=== PATIENT | female | born 1995 | race Caucasian/White ===

== ENCOUNTER 2017-10-14 16:30 | Observation (INO) ==
--- NOTE | 2017-10-14 17:01 | Emergency Department Report ---
URI/Sore Throat HPI - General Chief Complaint: Upper Respiratory Infection Stated Complaint: Flu symptoms Time Seen by Provider: 10/14/17 17:00 Source: patient - History of Present Illness HPI Narrative: 22-year-old female presents to ER with nonproductive cough, generalized body aches, headache, chills and nausea. Says she started feeling bad yesterday with a cough. Today she vomited twice today with decreased appetite. Denies fever, rhinorrhea, SOA (now), CP, abdominal pain, dysuria, neck stiffness /pain. Patient was weak and hyperventilating per nurse when she arrived. No known sick contacts. Patient did have influenza vaccine this year. MD Complaint: cough, sore throat, rhinorrhea, nasal congestion Severity scale (1-10): 7 (genralized body aches) Relieving factors: NSAID, OTC cold medicine - Related Data Home Medications Medication Instructions Recorded Confirmed Dextromethorphan Oral Liq [Delsym] 30 mg PO Q4H PRN 10/14/17 10/14/17 Ibuprofen 600 mg PO Q6H PRN 10/14/17 10/14/17 Allergies Allergy/AdvReac Type Severity Reaction Status Date / Time No Known Allergies Allergy Verified 10/14/17 23:55 Review of Systems All systems: reviewed and negative except as stated Constitutional: Reports: as per HPI, chills Respiratory: Reports: as per HPI, cough Gastrointestinal: Reports: as per HPI, nausea, vomiting Musculoskeletal: Reports: as per HPI, other (genralized body aches) Neurological: Reports: as per HPI, headache PFSH None Surgical History: None Family History: Noncontributory Physical Exam - Limitations Limitations: no limitations - General General appearance: alert - Normal Exams: Head:: Normocephalic without trauma Eyes:: Pupils are PERRLA w/ EOMI, No scleral icterus, irritation ENMT:: No facial trauma, nasal exudates, pharyngeal erythema, or exudates are noted Abdomen:: Bowel sounds positive, soft, non-tender, non-distended, no hepatosplenomegaly Lymphatic:: No lymphadenopathy Musculoskeletal:: good range of motion, all extremities Neurological:: Patient is alert, and oriented, cranial nerves, motor/sensory/ cerebellar, exams w/o gross deficits, to observation Psychiatric:: Patient exhibits, appropriate attention - ENT ENT exam: Present: mucous membranes moist, TM's normal bilaterally (with good light reflex) - Neck Neck exam: Present: trachea midline. Absent: other (nuchal rigidity) - Chest Chest inspection: Present: symmetric chest wall rise - Expanded Respiratory Exam Location: Left: decreased breath sounds, Right: decreased breath sounds, Lower: decreased breath sounds - Cardiovascular Cardiovascular exam: Present: normal rhythm (96 bpm) - Skin Skin exam: Present: warm, dry Course - Consultations Consultation #1: Discussed patient's HPI, past medical history, labs, vital signs, chest x-ray, exam findings and treatment in the ER with Dr. Reina. Dr. Reina will admit observation status. Vital Signs Temperature 99.5 F 10/14/17 16:46 Pulse Rate 99 10/14/17 16:46 Respiratory Rate 28 H 10/14/17 16:46 Blood Pressure 108/64 10/14/17 16:46 Pulse Oximetry 100 10/14/17 16:46 Temperature 98.4 F 10/15/17 10:13 Pulse Rate 90 10/15/17 08:29 Respiratory Rate 14 10/15/17 08:29 Blood Pressure 124/66 10/15/17 08:29 Pulse Oximetry 95 10/15/17 08:29 Upper Respiratory Infection - [facility] Narrative Medical decision making narrative: Patient has influenza positive with a white count of 2.6 and absolute neutrophils of 2. Lactate 3.3 184, rocephin ordered at this time. Still waiting on CXR. 1844 patient states she is feeling much better after NS, Toradol and Zofran. I discussed labs with patient and answered questions. Patient agrees with admission. - Differential Diagnosis Differential diagnosis: Likely: upper respiratory infection, viral infection, bronchitis, influenza - Lab Data Attestation: I reviewed the patient's lab results. Result diagrams: 10/15/17 04:36 10/15/17 04:36 Lab Results 10/14/17 10/14/17 10/14/17 Range/Units 17:13 17:13 17:22 WBC 2.6 L (4.5-11.0) T/MM3 RBC 4.42 (4.00-5.20) M/MM3 Hgb 12.0 (12-16) GM/DL Hct 36.8 (36-46) % MCV 83.3 (80-100) UM3 MCH 27.1 (26-34) UUG MCHC 32.6 (31-37) GM/DL RDW Std Deviation 45.3 (36.9-50.2) FL Plt Count 187 (130-400) T/MM3 MPV 9.8 (9.4-12.4) UM3 Immature Gran % (Auto) 0.0 (0.0-0.5) % Neut % (Auto) 75.9 H (33-66) % Lymph % (Auto) 12.8 L (23-45) % [place] % (Auto) 10.1 H (0-9.0) % Eos % (Auto) 0.8 (0-4) % Baso % (Auto) 0.4 (0-2) % Neut # (Auto) 2.0 (1.8-7.7) T/MM3 Lymph # (Auto) 0.3 L (1-4.8) T/MM3 [place] # (Auto) 0.3 (0-0.8) T/MM3 Eos # (Auto) 0.0 (0-0.5) T/MM3 Baso # (Auto) 0.0 (0-0.2) T/MM3 Abs Immat Gran (auto) 0.00 (0.00-0.03) T/MM3 Turbidity < 20 (0-20) Sodium 140 (134-144) MEQ/L Potassium 3.8 (3.6-5) MEQ/L Chloride 107 (98-107) MEQ/L Carbon Dioxide 23 (22-30) MEQ/L Anion Gap 10 (5-15) MEQ/L BUN 8.0 (7-17) MG/DL Creatinine 0.7 (0.7-1.2) MG/DL GFR Calculation 107 BUN/Creatinine Ratio 11 (6-26) RATIO Glucose 105 (65-110) MG/DL Calculated Osmolality 267 (261-280) MOSM/KG Calcium 9.3 (8.4-10.2) MG/DL Icterus Index < 2 (0-7) Plasma Lactate (0.6-2.2) MMOL/L Beta HCG, Quant mIU/mL Specimen Hemolysis < 15 (0-25) Monoscreen (Negative) Influenza Type A (PCR) Positive A* (Negative) Influenza Type B (PCR) Negative (Negative) 10/14/17 10/14/17 10/14/17 Range/Units 18:24 18:24 18:24 WBC (4.5-11.0) T/MM3 RBC (4.00-5.20) M/MM3 Hgb (12-16) GM/DL Hct (36-46) % MCV (80-100) UM3 MCH (26-34) UUG MCHC (31-37) GM/DL RDW Std Deviation (36.9-50.2) FL Plt Count (130-400) T/MM3 MPV (9.4-12.4) UM3 Immature Gran % (Auto) (0.0-0.5) % Neut % (Auto) (33-66) % Lymph % (Auto) (23-45) % [place] % (Auto) (0-9.0) % Eos % (Auto) (0-4) % Baso % (Auto) (0-2) % Neut # (Auto) (1.8-7.7) T/MM3 Lymph # (Auto) (1-4.8) T/MM3 [place] # (Auto) (0-0.8) T/MM3 Eos # (Auto) (0-0.5) T/MM3 Baso # (Auto) (0-0.2) T/MM3 Abs Immat Gran (auto) (0.00-0.03) T/MM3 Turbidity (0-20) Sodium (134-144) MEQ/L Potassium (3.6-5) MEQ/L Chloride (98-107) MEQ/L Carbon Dioxide (22-30) MEQ/L Anion Gap (5-15) MEQ/L BUN (7-17) MG/DL Creatinine (0.7-1.2) MG/DL GFR Calculation BUN/Creatinine Ratio (6-26) RATIO Glucose (65-110) MG/DL Calculated Osmolality (261-280) MOSM/KG Calcium (8.4-10.2) MG/DL Icterus Index (0-7) Plasma Lactate 3.3 H (0.6-2.2) MMOL/L Beta HCG, Quant < 2.39 mIU/mL Specimen Hemolysis (0-25) Monoscreen Negative (Negative) Influenza Type A (PCR) (Negative) Influenza Type B (PCR) (Negative) - Radiology Data Attestation: I reviewed the patient's radiology results. No acute cardiopulmonary findings Disposition Clinical Impression: Influenza A, Dehydration, Severe sepsis Disposition: 02 To [facility] [place] Acute Care Condition: Stable for Transport - Seen By: midlevel
[2017-10-14] MEDS ORDERED: NS 1,000 ML IV ONE ×2 (17:02→18:25)
[2017-10-14] MEDS ORDERED: ONDANSETRON 4 MG/2 ML INJECTION IVP ONE (17:04)
[2017-10-14] MEDS ORDERED: ALBUTEROL 2.5mg/3ml (0.083%) NEB AEROSOL ONE (17:47)
[2017-10-14] MEDS ORDERED: KETOROLAC 30 MG/ML INJECTION IVP ONE (18:26)
[2017-10-14] MEDS ORDERED: CEFTRIAXONE (ER USE ONLY) 1 GM in NS 100 ML IV ONE ×2 (18:40→21:09)
[2017-10-14] MEDS ORDERED: HYDROCODONE/APAP 5mg/325mg TABLET PO PRN (21:09)
[2017-10-14] MEDS ORDERED: ONDANSETRON 4 MG/2 ML INJECTION IVP PRN (21:09)
[2017-10-14] MEDS ORDERED: MORPHINE SULFATE 4mg INJECTION IVP PRN (21:09)
[2017-10-14] MEDS ORDERED: IBUPROFEN 600 MG TABLET PO PRN (21:09)
[2017-10-14] MEDS ORDERED: AZITHROMYCIN IV 500 MG in NS 250ml 250 ML IV SCH (21:09)
[2017-10-14] MEDS ORDERED: DOCUSATE SODIUM 100 MG CAPSULE PO PRN (21:09)
[2017-10-14] MEDS: NS 1,000 ML IV SCH (21:19)
[2017-10-14] MEDS: ACETAMINOPHEN 325 MG TABLET PO PRN (21:55)
[2017-10-15 01:02] VITALS: BMI 23.8
--- NOTE | 2017-10-15 06:08 | History & Physical Report ---
History of Present Illness Date: 10/15/17 Chief complaint: cough HPI: 22 y/o female with onset of cough that began yesterday. Patient with weakness, myalgia, In the ED diagnosed with influenza A. She does have elevated LA and basically did not feel that she was able to go home. Patient to be admitted for fluid and cycling lactic acid with tamiflu Review of Systems Review of systems: patient with headache, congestion, sore throat, cough that is non productive, mild nausea without emesis, no diarhea, no skin rash, no focal motor weakness, generally weak. 10 point ROS otherwise neg except for outlined above. Past Medical History none Surgical History: None Family History Updates: parents are healthy - Social History Smoking status: Never smoker Substance use type: does not use Alcohol intake frequency: does not drink Current occupational status: student Medications Home Medications Medication Instructions Recorded Confirmed Type Dextromethorphan Oral Liq [Delsym] 30 mg PO Q4H PRN 10/14/17 10/14/17 History Ibuprofen 600 mg PO Q6H PRN 10/14/17 10/14/17 History Allergies Allergy/AdvReac Type Severity Reaction Status Date / Time No Known Allergies Allergy Verified 10/14/17 23:55 Exam Vital Signs: Temperature 99.3 F 10/15/17 04:38 Pulse Rate 119 H 10/14/17 21:06 Respiratory Rate 25 H 10/14/17 21:06 Blood Pressure 108/61 10/14/17 21:06 Pulse Oximetry 98 10/14/17 21:06 Telemetry Rhythm: Sinus Rhythm Height/Weight/BMI: Height 1.7 m Weight 69 kg Body Mass Index 23.8 - Constitutional Present: mild distress, well nourished, well developed, thin, cooperative - Routine HEENT Exam Head: Present: normocephalic, atraumatic Eye: Present: EOMI ENT: Present: mucous membranes dry - Routine Neck Exam Present: supple, full ROM - Routine Respiratory Exam Present: CTA bilaterally - Routine Cardiovascular Exam Present: RRR, no murmur - Routine Abdominal Exam Present: soft, normoactive bowel sounds, non distended, non tender - Routine Extremities Exam Present: no edema, non tender, full ROM - Routine Back/Spine/Pelvis Exam Back/Spine: Present: full ROM - Routine Skin Exam Present: intact - Routine Neurological Exam Present: alert, oriented X3. Absent: motor deficit - Routine Psychiatric Exam Present: normal affect, normal thought process Results - Labs CBC & Chem 7: 10/15/17 04:36 10/15/17 04:36 Labs: labs reviewed and will be discussed below - Imaging and Cardiology Chest x-ray Additional comments: no acute process Assessment and Plan (1) Influenza A Current visit: Yes Status: Acute (2) Dehydration Current visit: Yes Status: Acute (3) Severe sepsis Current visit: Yes Status: Acute Assessment and Plan: 1. influenza A bronchitis acute POA: tamiflu. with elevated LA, cover with roceph and zithromax intiially. fluids, antipyretics. reasseess with labs in the am 2. severe sepsis acute POA: fluids resucitation and cycle LA, should respond easily 3. dehydration acute POA: clinically, fluids and reassess in am DVT Prophylaxis: SCD's Resuscitation Status: Full Code - Time spent with patient Time with patient PN: 30 minutes Coordination of Care: >50% of visit spent providing counseling/coordination of care - Physician Narrative Physician: Amy Trevino MD Narrative: Date: 10/15/17 Time: 1100 Ms. Bean was interviewed and examined by me this am. She reports starting to feel ill on Monday. She states that started with aching all over as well as a headache. She has not taken much fluid or food in sense. She developed increasing weakness as well as fevers and chills. She's had a sore throat and a nonproductive cough. She's had mild nausea but denies vomiting. She denies any diarrhea. She presented to the emergency room late last evening. She was positive for influenza A. her lactate was elevated at 3.3 and has come down to 2.0 today. She was given IV fluids and started on Tamiflu. She was given Rocephin and azithromycin. Her peak temp was 101.2 at 2037 last night. She was still 100.4 this am but currently is afebrile. She has been up in the room. She is eating and drinking a little. She denies nausea this am. She reports bowels have been moving. PMH: Unremarkable, She takes no medications. She denies medical or surgical history PSH: None Social hx: Never smoker Rare ETOH Student Family Hx: Mom and dad are both alive and well. She knows of no major medical issues that run in the family ROS: 12 pt ros is negative except as noted above. PE: Gen: alert and oriented. NAD Skin: warm and dry HEENT: NC/AT PERRL, EOMI, Sclera, lids and conjunctiva wnl. MMM. OP clear. Neck: No JVD, Carotids 2+ without bruits Lungs: clear. No rales, rhonchi or wheezes CV: regular. No murmur, rub or gallop Abd: soft. +BS. NT/ND MS: No edema. Good strength and ROM Neuro: No focal deficits Assessment and plan: 1. Influenza A with fevers, nausea, weakness -Tamiflu 2. Dehydration -IVF, encourage PO intake She can probably go home later today if she remains afebrile, is ambulating and eating and drinking okay. Will reassess this afternoon. 1345 Pt seen in the afternoon. She is eating and drinking. She has not been up and walking yet. She has been afebrile. She would like to go home. I told her to get up and around and if she still feels like going she can. She is encouraged to drink plenty of water. Hospital Course Summary Disclaimer: The visit summary below is not to be considered part of the above Progress Note.
[2017-10-15] MEDS: NS 1,000 ML IV SCH ×3 (06:36→08:57)
--- NOTE | 2017-10-15 08:49 | XRay Report ---
INDICATION: cough, sepsis PROCEDURE: CHEST 2-VIEWS UPRIGHT (PA & LAT) Encounter: Initial COMPARISON: None FINDINGS: The lungs are clear without evidence of focal abnormal airspace opacity. There is no pleural effusion or pneumothorax. The heart size, mediastinal contours and pulmonary vascularity are within normal limits. There is no significant skeletal abnormality. IMPRESSION: No acute cardiopulmonary disease. .
[2017-10-15] MEDS: ACETAMINOPHEN 325 MG TABLET PO PRN (08:52)
[2017-10-15 12:08] VITALS: BP 103/65; PULSE 70; RESP 16; TEMP 98.1; O2SAT 97
--- NOTE | 2017-10-15 14:19 | Discharge Summary ---
Discharge Information Date of admission: 10/14/17 20:25 Anticipated date of discharge: 10/15/17 Attending Physician: Leonel Guthrie IV, MD Primary care physician: OTHER - Discharge Diagnosis (1) Influenza A Status: Acute (2) Dehydration Status: Acute (3) Severe sepsis Status: Acute Influenza A Dehydration - Laboratory Labs: 10/15/17 04:36 10/15/17 04:36 - Radiology Radiology: CXR unremarkable History of Present Illness HPI: 22 y/o female with onset of cough that began yesterday. Patient with weakness, myalgia, In the ED diagnosed with influenza A. She does have elevated LA and basically did not feel that she was able to go home. Patient to be admitted for fluid and cycling lactic acid with tamiflu She reports starting to feel ill on Monday. She states that started with aching all over as well as a headache. She has not taken much fluid or food intake. She developed increasing weakness as well as fevers and chills. She's had a sore throat and a nonproductive cough. She's had mild nausea but denies vomiting. She denies any diarrhea. She presented to the emergency room late last evening. She was positive for influenza A. her lactate was elevated at 3.3 and has come down to 2.0 today. She was given IV fluids and started on Tamiflu. She was given Rocephin and azithromycin. Her peak temp was 101.2 at 2037 last night. She was still 100.4 this am but currently is afebrile. She has been up in the room. She is eating and drinking a little. She denies nausea this am. She reports bowels have been moving Objective Vital signs: Temperature 98.1 F 10/15/17 12:04 Pulse Rate 70 10/15/17 12:04 Respiratory Rate 16 10/15/17 12:04 Blood Pressure 103/65 10/15/17 12:04 Pulse Oximetry 97 10/15/17 12:04 Height/Weight/BMI: Height 1.7 m Weight 69.8 kg Body Mass Index 23.8 Comments: Gen: alert and oriented. NAD Skin: warm and dry HEENT: NC/AT PERRL, EOMI, Sclera, lids and conjunctiva wnl. MMM. OP clear. Neck: No JVD, Carotids 2+ without bruits Lungs: clear. No rales, rhonchi or wheezes CV: regular. No murmur, rub or gallop Abd: soft. +BS. NT/ND MS: No edema. Good strength and ROM Neuro: No focal deficits Hospital Course Ms. Bean was admitted with influenza A and dehydration. She was started on Tamiflu. She was given a dose of azithromycin and Rocephin in the emergency room. Her chest x-ray is unremarkable. She is now ambulating without difficulty. She is eating and drinking. She denies any nausea. She would like to go home and I think this is reasonable. Discharge Plan - Discharge Disposition Discharge Date: 10/15/17 Disposition: 01 Discharged Home, Self-Care *Condition: Stable for Transport Reason For Visit (Visit label in EMR): influenza a - Discharge Medications *Discharge Medications: New Oseltamivir Cap [Tamiflu] 75 mg PO BID #10 cap Acetaminophen [Tylenol] 325 - 650 mg PO Q5H PRN tablet PRN Reason: Discomfort Ibuprofen [Motrin] 600 mg PO Q6H PRN tablet PRN Reason: Pain Continue Dextromethorphan Oral Liq [Delsym] 30 mg PO Q4H PRN PRN Reason: Prn Orders Discontinued Ibuprofen 600 mg PO Q6H PRN PRN Reason: Pain /Fever - Discharge Packet/Instructions *Diet: regular. *Activity: as tolerated *Pain Management/Treatment: N/A *Wound Care: N/A *Expected Signs/Symptoms: N/A *Notify Physician if: Fevers, chills, worsening flu symptoms or unable to keep fluids down *During Business Hours Contact: PCP *After Business Hours Contact: ED *Pending Lab/Results: Follow up w/Provider (in a week.) - Referrals/Follow Up - Patient Handouts - Dismissal Complete Discharge Instructions are:: Complete Physician Narrative - Narrative Attestation Narrative: Date: 10/15/17 Time: 0452
== END 2017-10-15 14:55 | disposition home or self-care (01) ==
LOC: MED 16:30 → ED 16:30 → SUATTDRO 20:25 → MED 21:10
PROVIDERS: ADMIT Emergency Medicine; ATTEND Hospitalist